=== PATIENT | female | born 1985 | race Caucasian/White ===

== ENCOUNTER 2017-04-30 22:26 | Emergency (ER) | payer MEDICAID ==
[2017-04-30 22:36] VITALS: BP 125/66; PULSE 78; RESP 16; TEMP 97.7; O2SAT 99
[2017-04-30] MEDS ORDERED: Sodium Chloride 0.9% 1,000 ML IV STA (23:08)
[2017-04-30 23:33] LABS: BASO % 0.3 % (0.0-2.0); EOS # 0.3 K/uL (0.0-0.7); EOS % 3.6 % (0.0-4.0); HEMOGLOBIN 12.2 g/dL (12.0-16.0); LYMPH # 3.4 K/uL (1.0-4.3); LYMPH % 40.2 % (20.0-40.0); MEAN CELL VOLUME 78.7 fl (81.0-99.0); MEAN CORPUSCULAR HEMOGLOBIN 25.7 pg (27.0-31.0); MEAN CORPUSCULAR HGB CONC 32.7 g/dL (33.0-37.0); MEAN PLATELET VOLUME 8.3 fl (7.2-11.7); MONO # 0.5 K/uL (0.0-0.8); MONO % 6.3 % (0.0-10.0); NEUT # 4.3 K/uL (1.8-7.0); NEUT % 49.6 % (50.0-75.0); RBC 4.76 Mil/uL (3.80-5.20); RED CELL DISTRIBUTION WIDTH 13.1 % (11.5-14.5); WHITE BLOOD COUNT 8.6 K/uL (4.8-10.8)
[2017-04-30 23:35] LABS: ALB/GLOB RATIO 1.3 (1.0-2.1); ALBUMIN 4.3 g/dL (3.5-5.0); ALT/SGPT 33 U/L (9-52); AST/SGOT 19 U/L (14-36); BLOOD UREA NITROGEN 13 mg/dl (7-17); CALCIUM 9.3 mg/dL (8.4-10.2); GFR AFRICAN-AMERICAN > 60; GFR NON-AFRICAN AMERICAN > 60; MAGNESIUM 2.3 MG/DL (1.6-2.3)
--- NOTE | 2017-04-30 23:59 | CT ---
EXAM: CT Head Without Intravenous Contrast CLINICAL HISTORY: 31 years old, female; Pain; Headache; Additional info: Dizziness headache TECHNIQUE: Axial computed tomography images of the head/brain without intravenous contrast. This CT exam was performed using one or more of the following dose reduction techniques: automated exposure control, adjustment of the mA and/or kV according to patient size, and/or use of iterative reconstruction technique. Coronal and sagittal reformatted images were created and reviewed. COMPARISON: No relevant prior studies available. FINDINGS: Brain: No intracranial hemorrhage. 0.7 x 0.4 x 1.0 cm lipoma along quadrigeminal plate. No definite edema. Ventricles: No hydrocephalus. Bones/joints: No acute fracture. Sinuses: Moderate mucosal thickening of ethmoid sinuses. Mild mucosal thickening of sphenoid sinuses. Mastoid air cells: No mastoid effusion. Orbits: Unremarkable as visualized. IMPRESSION: 1. No acute intracranial abnormality. 2. Sinus disease. 3. Incidental/non-acute findings are described above.
--- NOTE | 2017-05-01 00:12 | ED PDOC ---
HPI: Headache Time Seen by Provider: 04/30/17 22:38 Chief Complaint (Nursing): Headache Chief Complaint (Provider): Headache History Per: Patient History/Exam Limitations: no limitations Onset/Duration Of Symptoms: Days (x3) Current Symptoms Are (Timing): Still Present Additional Complaint(s): Nataliia Moreno is a 31 year old female that presents to the ED with a chief complaint of a frontal, pressure-like headache and vertiginous dizziness that she has been experiencing for the past three days. Patient reports that her symptoms were initially intermittent but have since become persistent. She states that she has experienced similar headaches in the past, but that they would never last this long. She reports associated malaise, fatigue, and mild shortness of breath, but denies any nausea, vomiting, chest pain, focal weakness , or blurry vision. Past Medical History Reviewed: Historical Data, Nursing Documentation, Vital Signs Vital Signs: Last Vital Signs Temp 97.7 F 04/30/17 22:32 Pulse 78 04/30/17 22:32 Resp 16 04/30/17 22:32 BP 125/66 04/30/17 22:32 Pulse Ox 99 04/30/17 22:32 - Surgical History Surgical History: No Surg Hx - Family History Family History: States: Diabetes - Social History Current smoker - smoking cessation education provided: No Alcohol: None Drugs: Denies - Home Medications Home Medications: Ambulatory Orders Medication Instructions Recorded Acetaminophen/Butalbital/Caf 1 tab PO TID PRN #20 tab 05/01/17 [Fioricet] Cetirizine HCl [Zyrtec] 10 mg PO DAILY #30 tab.rapdis 05/01/17 - Allergies Allergies/Adverse Reactions: Allergies Allergy/AdvReac Type Severity Reaction Status Date / Time No Known Allergies Allergy Verified 04/30/17 22:32 Review of Systems Constitutional: Positive for: Malaise, Other (Fatigue) Eyes: Negative for: Other (denies focal weakness or blurred vision) Cardiovascular: Negative for: Chest Pain Respiratory: Positive for: Shortness of Breath (mild) Gastrointestinal: Negative for: Nausea, Vomiting Neurological: Positive for: Headache (Frontal, pressure-like), Dizziness ( vertiginous) Physical Exam - Reviewed Nursing Documentation Reviewed: Yes Vital Signs Reviewed: Yes - Physical Exam Appears: Positive for: Non-toxic, No Acute Distress Head Exam: Positive for: ATRAUMATIC, NORMOCEPHALIC Skin: Positive for: Normal Color, Warm, Dry Eye Exam: Positive for: Normal appearance, EOMI, PERRL. Negative for: Nystagmus ENT: Positive for: Normal ENT Inspection, Pharynx Is (clear), Other (Moint mucous membranes) Neck: Positive for: Normal, Painless ROM, Supple Cardiovascular/Chest: Positive for: Regular Rate, Rhythm, Chest Non Tender. Negative for: Edema, Murmur Respiratory: Positive for: Normal Breath Sounds. Negative for: Wheezing, Respiratory Distress Gastrointestinal/Abdominal: Positive for: Normal Exam, Soft. Negative for: Tenderness, Distended Back: Positive for: Normal Inspection. Negative for: L CVA Tenderness, R CVA Tenderness Extremity: Positive for: Normal ROM. 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 Negative for : Motor/Sensory Deficits - Laboratory Results Result Diagrams: 04/30/17 23:14 04/30/17 23:14 - ECG O2 Sat by Pulse Oximetry: 99 (rA) Pulse Ox Interpretation: Normal Medical Decision Making Medical Decision Making: Impression: Headache Plan: * EKG * CT Head w/o contrast * Glucose, Blood, POC * Urine dip * Urine * Tylenol 3 975 mg PO * Dextrose 5% 1000 mL at 100 mLs/hr * NaCl 1000 mL at 1000 mLs/hr * Antivert 25 mg PO * Reevaluation CT Head w/o contrast FINDINGS: Brain: No intracranial hemorrhage. 0.7 x 0.4 x 1.0 cm lipoma along quadrigeminal plate. No definite edema. Ventricles: No hydrocephalus. Bones/joints: No acute fracture. Sinuses: Moderate mucosal thickening of ethmoid sinuses. Mild mucosal thickening of sphenoid sinuses. Mastoid air cells: No mastoid effusion. Orbits: Unremarkable as visualized. IMPRESSION: 1. No acute intracranial abnormality. 2. Sinus disease. 3. Incidental/non-acute findings are described above EKG shows NSR at rate of 72, normal ST segment, normal QRS. Labs show no clinically significant abnormalities. Urine is positive for small ketone, otherwise negative. 12:!5am On reeval pt reports feeling better. DW pt findings and plan of care. Scribe Attestation: Documented by Tamia Mann, acting as a scribe for Natasha Ellis MD. Provider Scribe Attestation: All medical record entries made by the Scribe were at my direction and personally dictated by me. I have reviewed the chart and agree that the record accurately reflects my personal performance of the history, physical exam, medical decision making, and the department course for this patient. I have also personally directed, reviewed, and agree with the discharge instructions and disposition. Disposition - Clinical Impression Clinical Impression: Headache, Sinusitis - Disposition Referrals: [facility] [Outside] [facility] [Outside] Disposition: Routine/Home Disposition Time: 00:15 Condition: IMPROVED Prescriptions: Acetaminophen/Butalbital/Caf [Fioricet] 1 tab PO TID PRN #20 tab PRN Reason: Headache Cetirizine HCl [Zyrtec] 10 mg PO DAILY #30 tab.deja Instructions: Sinusitis (ED), Acute Headache (ED) Forms: [facility] ED School/Work Excuse
--- NOTE | 2017-05-01 08:00 | CARD ---
APPROVED REPORT EKG Measurement Heart [id number] <Conclusion> Normal sinus rhythm Normal ECG
== END 2017-05-01 00:40 | disposition home or self-care (01) ==
LOC: H.ER 22:26
DX: J32.9 Chronic sinusitis, unspecified (principal); R51 Headache

== ENCOUNTER 2017-11-02 23:15 | Emergency (ER) | payer MEDICAID ==
[2017-11-03 00:11] VITALS: BP 138/82; PULSE 87; RESP 16; TEMP 97.5; O2SAT 99
[2017-11-03] MEDS ORDERED: Sodium Chloride 0.9% 1,000 ML IV STA (02:03)
[2017-11-03 02:07] LABS: HEMOGLOBIN 12.8 g/dL (12.0-16.0); MEAN CELL VOLUME 78.4 fl (81.0-99.0); MEAN CORPUSCULAR HEMOGLOBIN 25.2 pg (27.0-31.0); MEAN CORPUSCULAR HGB CONC 32.2 g/dL (33.0-37.0); RBC 5.09 Mil/uL (3.80-5.20)
[2017-11-03 02:16] LABS: BLOOD UREA NITROGEN 13 mg/dl (7-17); CALCIUM 9.5 mg/dL (8.4-10.2); GFR AFRICAN-AMERICAN > 60; GFR NON-AFRICAN AMERICAN > 60
--- NOTE | 2017-11-03 02:28 | ED PDOC ---
Syncope/Near Syncope/Dizziness Time Seen by Provider: 11/03/17 01:33 Chief Complaint (Nursing): Dizziness/Lightheaded Chief Complaint (Provider): Dizziness/Lightheaded History Per: Patient History/Exam Limitations: no limitations Additional Complaint(s): 32 y/o female with past medical history of dizziness presents to the ED complaining of dizziness. Patient reports that this happens often when she is sleeping and gets up suddenly and has an episode of dizziness and pass out. Normally she circumvents by laying back down but today didnt lay down quickly and hit her chin on table and injured right shoulder. Denies head injury or any further medical complaints. Past Medical History Reviewed: Historical Data, Nursing Documentation, Vital Signs Vital Signs: Last Vital Signs Temp 97.5 F L 11/03/17 00:07 Pulse 87 11/03/17 00:07 Resp 16 11/03/17 00:07 BP 138/82 11/03/17 00:07 Pulse Ox 99 11/03/17 00:07 - Medical History Other PMH: Dizziness - Family History Family History: States: Unknown Family Hx, Diabetes - Immunization History Hx Tetanus Toxoid Vaccination: No Hx Influenza Vaccination: No Hx Pneumococcal Vaccination: No - Home Medications Home Medications: Ambulatory Orders Medication Instructions Recorded Nitrofurantoin Macrocrystals 1 cap PO BID #14 cap 05/24/15 [Macrobid] Phenazopyridine Hydrochlorid2 1 tab PO TID #15 tab 05/24/15 [Pyridium] Acetaminophen/Butalbital/Caf 1 tab PO TID PRN #20 tab 05/01/17 [Fioricet] Cetirizine HCl [Zyrtec] 10 mg PO DAILY #30 tab.rapdis 05/01/17 - Allergies Allergies/Adverse Reactions: Allergies Allergy/AdvReac Type Severity Reaction Status Date / Time No Known Allergies Allergy Verified 11/03/17 00:07 Review of Systems ROS Statement: Except As Marked, All Systems Reviewed And Found Negative (As per HPI, otherwise negative) Musculoskeletal: Positive for: Shoulder Pain (injured right shoulder) Skin: Positive for: Other (Abrasion on chin) Neurological: Positive for: Dizziness Physical Exam - Reviewed Nursing Documentation Reviewed: Yes Vital Signs Reviewed: Yes - Physical Exam Appears: Positive for: Well, Non-toxic, No Acute Distress Head Exam: Positive for: ATRAUMATIC, NORMAL INSPECTION, NORMOCEPHALIC Skin: Positive for: Normal Color, Warm, Dry (0.5 cm superficial laceration botton of the chin (clean, no bleeding)) Eye Exam: Positive for: EOMI, Normal appearance, PERRL ENT: Positive for: Normal ENT Inspection Neck: Positive for: Normal, Painless ROM, Supple Cardiovascular/Chest: Positive for: Regular Rate, Rhythm. Negative for: Murmur Respiratory: Positive for: Normal Breath Sounds. Negative for: Accessory Muscle Use, Respiratory Distress Gastrointestinal/Abdominal: Positive for: Normal Exam, Bowel Sounds, Soft Back: Positive for: Normal Inspection Extremity: Positive for: Normal ROM (Right shoulder), Other (Pain on palpation to right shoulder anterior to deltoid) Neurologic/Psych: Positive for: Alert, Oriented (x3) - Laboratory Results Result Diagrams: 11/03/17 02:05 11/03/17 02:05 - ECG O2 Sat by Pulse Oximetry: 99 (RA) Pulse Ox Interpretation: Normal Medical Decision Making Medical Decision Making: Time: 02:05 Initial Impression: vertigo vs vasovagal syncope and laceration Plan: BMP CBC Sodium chloride 1L IV Reevaluation Time: 03:17 Upon provider reevaluation patient is feeling better, is medically stable, and requires no further treatment in the ED at this time. Patient will be discharged home. Counseling was provided and all questions were answered regarding diagnosis and need for follow up with Dr. Rosy Contreras. There is agreement to discharge plan. Return if symptoms persist or worsen. Clinical Impression: laceration, Dizziness Scribe Attestation: Documented by Ed Gastelum acting as a scribe for Dg Schuler MD. Scribe Attestation: All medical record entries made by the Scribe were at my direction and personally dictated by me. I have reviewed the chart and agree that the record accurately reflects my personal performance of the history, physical exam, medical decision making, and the department course for this patient. I have also personally directed, reviewed, and agree with the discharge instructions and disposition. Disposition - Clinical Impression Clinical Impression: Dizziness, Laceration - Disposition Referrals: Rosy Contreras MD [Medical Doctor] - Disposition Time: 03:30 Condition: IMPROVED Additional Instructions: Please followup with the neurologist for further workup. Instructions: Laceration (DC), Dizziness (ED), Skin Adhesive Care (ED) Forms: [employer] (Surinamese)
== END 2017-11-03 03:27 | disposition home or self-care (01) ==
LOC: H.ER 23:15
DX: R42 Dizziness and giddiness (principal); M25.511 Pain in right shoulder; S00.81XA Abrasion of other part of head, initial encounter; W22.8XXA Striking against or struck by other objects, initial encounter; Y92.89 Other specified places as the place of occurrence of the external cause
CPT/HCPCS: 80048; 85027; 96360; 99282; J7040

== ENCOUNTER 2017-12-08 15:12 | Emergency (ER) | payer MEDICAID ==
[2017-12-08 15:44] VITALS: BP 147/85; PULSE 72; RESP 16; TEMP 98.7; O2SAT 97
[2017-12-08] MEDS ORDERED: Sodium Chloride 0.9% 1,000 ML IV STA (15:56)
--- NOTE | 2017-12-08 16:23 | ED PDOC ---
HPI: Abdomen Time Seen by Provider: 12/08/17 15:46 Chief Complaint (Nursing): Abdominal Pain Chief Complaint (Provider): Abdominal Pain History Per: Patient History/Exam Limitations: no limitations Onset/Duration Of Symptoms: Days (x1) Outside of [place] travel?: No Current Symptoms Are (Timing): Still Present Location Of Pain/Discomfort: LLQ Associated Symptoms: Urinary Symptoms ((+) frequency) Additional Complaint(s): 32 year old female presents to ED with complaints of abdominal pain x1 day and has no past medical history. Localizes pain to the LLQ and notes that pain radiates to the left flank region. (+) frequency, (-) fever, nausea, vomiting, diarrhea, dysuria, or hematuria. Confirms taking Tylenol provides temporary relief. PCP: None Past Medical History Reviewed: Historical Data, Nursing Documentation, Vital Signs Vital Signs: Last Vital Signs Temp 98.7 F 12/08/17 15:42 Pulse 72 12/08/17 15:42 Resp 16 12/08/17 15:42 BP 147/85 12/08/17 15:42 Pulse Ox 97 12/08/17 16:25 - Medical History PMH: No Chronic Diseases - Surgical History Surgical History: No Surg Hx - Family History Family History: States: Diabetes - Immunization History Hx Tetanus Toxoid Vaccination: No Hx Influenza Vaccination: No Hx Pneumococcal Vaccination: No - Home Medications Home Medications: Ambulatory Orders Medication Instructions Recorded Nitrofurantoin Macrocrystals 1 cap PO BID #14 cap 05/24/15 [Macrobid] Phenazopyridine Hydrochlorid2 1 tab PO TID #15 tab 05/24/15 [Pyridium] Acetaminophen/Butalbital/Caf 1 tab PO TID PRN #20 tab 05/01/17 [Fioricet] Cetirizine HCl [Zyrtec] 10 mg PO DAILY #30 tab.rapdis 05/01/17 Naproxen [Naprosyn] 500 mg PO BID PRN #15 tablet 12/08/17 - Allergies Allergies/Adverse Reactions: Allergies Allergy/AdvReac Type Severity Reaction Status Date / Time No Known Allergies Allergy Verified 11/03/17 00:07 Review of Systems ROS Statement: Except As Marked, All Systems Reviewed And Found Negative Constitutional: Negative for: Fever Gastrointestinal: Positive for: Abdominal Pain (LLQ pain). Negative for: Nausea , Vomiting, Diarrhea Genitourinary Female: Positive for: Frequency. Negative for: Dysuria, Hematuria Musculoskeletal: Positive for: Back Pain (abdominal pain radiates to left flank) Physical Exam - Reviewed Nursing Documentation Reviewed: Yes Vital Signs Reviewed: Yes - Physical Exam Appears: Positive for: Non-toxic, No Acute Distress Skin: Positive for: Normal Color, Warm, Dry Cardiovascular/Chest: Positive for: Regular Rate, Rhythm. Negative for: Murmur Respiratory: Positive for: Normal Breath Sounds. Negative for: Respiratory Distress Gastrointestinal/Abdominal: Positive for: Soft, Tenderness (LLQ tenderness). Negative for: Mass, Guarding, Rebound Back: Positive for: L CVA Tenderness. Negative for: Normal Inspection, R CVA Tenderness Neurologic/Psych: Positive for: Alert, Oriented. Negative for: Motor/Sensory Deficits - Laboratory Results Result Diagrams: 12/08/17 16:54 12/08/17 16:54 - ECG O2 Sat by Pulse Oximetry: 97 (RA) Pulse Ox Interpretation: Normal Medical Decision Making Medical Decision Makin Initial impression: UTI, pyelonephritis, kidney stones Initial plan: * CT A/P * Labs * UPreg * UDip * PTT/PT * Morphine 2mg IV * NS IV * Re-eval Accession No. : [id number] Patient Name / ID : HIREN WALLS N / [id number] Exam Date : 12/08/2017 16:34:23 ( Approved ) Study Comment : Sex / Age : F / 32Y Creator : Brandon Street MD Dictator : Brandon Street MD Senior Talent Management Consultant : Wireless Engineer : Brandon Street MD Approver2 : Report Date : 12/08/2017 17:25:32 My Comment : PROCEDURE: CT Abdomen and Pelvis without intravenous contrast HISTORY: L flank/LLQ pain COMPARISON: None. TECHNIQUE: CT scan of the abdomen and pelvis was performed without contrast. Multiple axial images were obtained as well as coronal and sagittal reconstruction images. Technique. Contrast Dose: No contrast administered Radiation dose: Total exam DLP = Total exam DLP = 395 mGy-cm. This CT exam was performed using one or more of the following dose reduction techniques: Automated exposure control, adjustment of the mA and/or kV according to patient size, and/or use of iterative reconstruction technique. FINDINGS: LOWER THORAX: Visualized lung bases are unremarkable for infiltrate, nodule, or effusion. Visualized distal esophagus, stomach, and duodenum are within normal limits. LIVER: No evidence of focal liver mass or intrahepatic ductal dilatation. GALLBLADDER AND BILE DUCTS: Unremarkable. PANCREAS: Unremarkable. No gross lesion or ductal dilatation. SPLEEN: Unremarkable. ADRENALS: Unremarkable. No mass. KIDNEYS AND URETERS: Kidney show no evidence of hydronephrosis or perinephric change. No ureteral calculus or ureteral dilatation is identified. Bladder is normal in outline. VASCULATURE: Unremarkable. No aortic aneurysm. BOWEL: Unremarkable. No obstruction. No gross mural thickening. No pericolonic inflammatory change noted. Moderate residual fecal material throughout the bowel. APPENDIX: Unremarkable. Normal appendix. PERITONEUM: Unremarkable. No free fluid. No free air. LYMPH NODES: Unremarkable. No enlarged lymph nodes. BLADDER: Unremarkable. REPRODUCTIVE: Uterus is retroverted in position. No adnexal masses are seen. No fluid is seen in the pelvis. BONES: No acute fracture. OTHER FINDINGS: None. IMPRESSION: No evidence of obstructive uropathy, perinephric change, or hydronephrosis. No renal calculi clearly seen. No appreciable acute inflammatory process elsewhere in the abdomen or pelvis. Accession No. : [id number] Patient Name / ID : HIREN WALLS / [id number] Exam Date : 12/08/2017 19:01:18 ( Approved ) Study Comment : Sex / Age : F / 32Y Creator : Mehreen Sultana MD Dictator : Senior Talent Management Consultant : Wireless Engineer : Mehreen Sultana MD Approver2 : Report Date : 12/08/2017 20:58:00 My Comment : [facility] Division of Radiology [address] [place] [id number] Tel. no. Patient Name: TITI MARADIAGA Pt. Address: [address] [place] [address] Rec #: [id number] [place] [address]: Sofia AVERY,Annie Covarrubias Pt Order Location: [facility] : 1985 Female Age: 32 Order #: [id number] Reason for exam: LLQ pain Ultrasound PELVIS/TRANSVAG US Exam Date: 12/08/17 This imaging exam was performed at [facility] (Former[facility] EXAM: US Pelvis Complete, Transabdominal US Pelvis, Transvaginal EXAM DATE/TIME: 12/08/2017 5:34 PM CLINICAL HISTORY: 32 years old, female; Pain; Other: Llq; Additional info: Llq pain TECHNIQUE: Real-time transabdominal and transvaginal pelvic ultrasound (complete) with image documentation. Transvaginal imaging was used for better evaluation of the endometrium and adnexa. COMPARISON: No relevant prior studies available. FINDINGS: Uterus: Within normal limits in appearance. Measures 6 x 4 x 4.9 cm. Endometrial stripe does not appear abnormally thickened, measuring 2.4 mm. No fibroids seen. Right ovary: Within normal limits in appearance, containing multiple follicles. Measures 2.4 x 2.8 x 1.5 cm. Flow seen in the right ovary on color and Doppler imaging, with no evidence of torsion. Left ovary: Within normal limits in appearance, containing multiple follicles. Measures 3.1 x 1.5 x 2 cm. Flow seen in the left ovary on color and Doppler imaging, with no evidence of torsion. Cul-de-sac: No free fluid. IMPRESSION: Unremarkable exam. No evidence of ovarian torsion, free fluid, or other acute abnormality. Dictated By: Mehreen Sultana MD Dictated Date/Time: 12/08/172057 Signed By: Mehreen Sultana MD Date Signed: 2057 Transcribed By: SINDY Transcribe Date/Time : 12/08/172057 [facility]02/МАРИЯ Scribe Attestation: Documented by Guera Tomlinson acting as a scribe Annie Black MD. Scribelan Attestation: All medical record entries made by the Scribe were at my direction and personally dictated by me. I have reviewed the chart and agree that the record accurately reflects my personal performance of the history, physical exam, medical decision making, and the department course for this patient. I have also personally directed, reviewed, and agree with the discharge instructions and disposition. Disposition - Clinical Impression Clinical Impression: Abdominal pain in female - Disposition Referrals: [facility] [Outside] Disposition: Routine/Home Disposition Time: 21:27 Condition: STABLE Prescriptions: Naproxen [Naprosyn] 500 mg PO BID PRN #15 tablet PRN Reason: Pain, Moderate (4-7) Instructions: Acute Abdomen (Belly Pain) Forms: [facility] (Tuvaluan)
[2017-12-08 17:08] LABS: BASO % 0.4 % (0.0-2.0); EOS # 0.3 K/uL (0.0-0.7); EOS % 3.4 % (0.0-4.0); HEMOGLOBIN 13.2 g/dL (12.0-16.0); LYMPH # 2.8 K/uL (1.0-4.3); MEAN CELL VOLUME 78.6 fl (81.0-99.0); MEAN CORPUSCULAR HEMOGLOBIN 25.5 pg (27.0-31.0); MEAN CORPUSCULAR HGB CONC 32.4 g/dL (33.0-37.0); MEAN PLATELET VOLUME 8.5 fl (7.2-11.7); MONO # 0.6 K/uL (0.0-0.8); MONO % 7.4 % (0.0-10.0); NEUT # 4.2 K/uL (1.8-7.0); NEUT % 53.8 % (50.0-75.0); NRBC % 0.1 % (0.0-0.0); RBC 5.19 Mil/uL (3.80-5.20); RED CELL DISTRIBUTION WIDTH 13.6 % (11.5-14.5); WHITE BLOOD COUNT 7.9 K/uL (4.8-10.8)
--- NOTE | 2017-12-08 17:26 | CT ---
PROCEDURE: CT Abdomen and Pelvis without intravenous contrast HISTORY: L flank/LLQ pain COMPARISON: None. TECHNIQUE: CT scan of the abdomen and pelvis was performed without contrast. Multiple axial images were obtained as well as coronal and sagittal reconstruction images. Technique. Contrast Dose: No contrast administered Radiation dose: Total exam DLP = Total exam DLP = 395 mGy-cm. This CT exam was performed using one or more of the following dose reduction techniques: Automated exposure control, adjustment of the mA and/or kV according to patient size, and/or use of iterative reconstruction technique. FINDINGS: LOWER THORAX: Visualized lung bases are unremarkable for infiltrate, nodule, or effusion. Visualized distal esophagus, stomach, and duodenum are within normal limits. LIVER: No evidence of focal liver mass or intrahepatic ductal dilatation. GALLBLADDER AND BILE DUCTS: Unremarkable. PANCREAS: Unremarkable. No gross lesion or ductal dilatation. SPLEEN: Unremarkable. ADRENALS: Unremarkable. No mass. KIDNEYS AND URETERS: Kidney show no evidence of hydronephrosis or perinephric change. No ureteral calculus or ureteral dilatation is identified. Bladder is normal in outline. VASCULATURE: Unremarkable. No aortic aneurysm. BOWEL: Unremarkable. No obstruction. No gross mural thickening. No pericolonic inflammatory change noted. Moderate residual fecal material throughout the bowel. APPENDIX: Unremarkable. Normal appendix. PERITONEUM: Unremarkable. No free fluid. No free air. LYMPH NODES: Unremarkable. No enlarged lymph nodes. BLADDER: Unremarkable. REPRODUCTIVE: Uterus is retroverted in position. No adnexal masses are seen. No fluid is seen in the pelvis. BONES: No acute fracture. OTHER FINDINGS: None. IMPRESSION: No evidence of obstructive uropathy, perinephric change, or hydronephrosis. No renal calculi clearly seen. No appreciable acute inflammatory process elsewhere in the abdomen or pelvis.
[2017-12-08 17:29] LABS: ALB/GLOB RATIO 1.1 (1.0-2.1); ALBUMIN 4.5 g/dL (3.5-5.0); ALT/SGPT 32 U/L (9-52); AST/SGOT 33 U/L (14-36); BLOOD UREA NITROGEN 10 mg/dl (7-17); CALCIUM 9.4 mg/dL (8.4-10.2); GFR AFRICAN-AMERICAN > 60; GFR NON-AFRICAN AMERICAN > 60
[2017-12-08 18:24] LABS: PARTIAL THROMBOPLASTIN TIME 30.6 Seconds (25.6-37.1); PROTHROMBIN TIME 11.1 Seconds (9.8-13.1)
--- NOTE | 2017-12-08 20:58 | US ---
EXAM: US Pelvis Complete, Transabdominal US Pelvis, Transvaginal EXAM DATE/TIME: 12/08/2017 5:34 PM CLINICAL HISTORY: 32 years old, female; Pain; Other: Llq; Additional info: Llq pain TECHNIQUE: Real-time transabdominal and transvaginal pelvic ultrasound (complete) with image documentation. Transvaginal imaging was used for better evaluation of the endometrium and adnexa. COMPARISON: No relevant prior studies available. FINDINGS: Uterus: Within normal limits in appearance. Measures 6 x 4 x 4.9 cm. Endometrial stripe does not appear abnormally thickened, measuring 2.4 mm. No fibroids seen. Right ovary: Within normal limits in appearance, containing multiple follicles. Measures 2.4 x 2.8 x 1.5 cm. Flow seen in the right ovary on color and Doppler imaging, with no evidence of torsion. Left ovary: Within normal limits in appearance, containing multiple follicles. Measures 3.1 x 1.5 x 2 cm. Flow seen in the left ovary on color and Doppler imaging, with no evidence of torsion. Cul-de-sac: No free fluid. IMPRESSION: Unremarkable exam. No evidence of ovarian torsion, free fluid, or other acute abnormality.
== END 2017-12-08 21:58 | disposition home or self-care (01) ==
LOC: H.ER 15:12
DX: R10.32 Left lower quadrant pain (principal)
CPT/HCPCS: 74176; 76830; 76856; 80053; 81025; 85025; 85610; 85730; 96360; 99284; J2270; J7040

== ENCOUNTER 2018-01-23 12:07 | Emergency (ER) | payer MEDICAID ==
[2018-01-23 12:32] VITALS: BP 119/74; PULSE 74; RESP 16; TEMP 98; O2SAT 98
[2018-01-23] MEDS ORDERED: Naproxen 500 MG TAB PO ONE ×2 (12:46→13:09)
[2018-01-23] MEDS ORDERED: Tdap Vaccine 0.5 ml Vial (10-64 yrs) IM ONE ×2 (12:46→13:09)
[2018-01-23] MEDS ORDERED: Bacitracin 500 Units/gm Oint Foilpak UD TOP STA (13:03)
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
== END 2018-01-23 13:56 | disposition home or self-care (01) ==
LOC: H.ER 12:07
DX: T20.00XA Burn of unspecified degree of head, face, and neck, unspecified site, initial encounter (principal)

== ENCOUNTER 2018-02-21 09:29 | Emergency (ER) | payer MEDICAID ==
[2018-02-21 09:35] VITALS: TEMP 98
--- NOTE | 2018-02-21 10:55 | ED PDOC ---
HPI: Abdomen Chief Complaint (Nursing): Abdominal Pain Chief Complaint (Provider): low back and pelvic pain History Per: Patient History/Exam Limitations: no limitations Onset/Duration Of Symptoms: Days (7) Outside of [place] travel?: No Current Symptoms Are (Timing): Still Present Severity: Moderate Pain Scale Rating Of: 4 Location Of Pain/Discomfort: LLQ, Suprapubic Quality Of Discomfort: "Pain" Associated Symptoms: Back Pain (low back), Other (bilateral breast tenderness). denies: Fever, Chills, Nausea, Vomiting, Diarrhea, Loss Of Appetite Exacerbating Factors: Movement, Walking, Other (bending her knees) Alleviating Factors: Rest (keeping legs straight) Last Bowel Movement: Yesterday (soft) Additional Complaint(s): 32 yr old presents to ED with complaint of suprapubic and bilateral lower quadrant abdominal pain x 1 week, 4/10, crampy, alleviated by keeping legs straight at rest, exacerbated by movement and bending knees. Patient reports she went for a run this morning and the abdominal pain persisted so she came to the ED. Denies PMHx. Associated symptoms are urinary frequency and bilateral breast tenderness. Denies nausea, vomiting, fevers, chills, dysuria, hematuria or vaginal discharge. LMP 01/26/18. Last bowel movement was yesterday-soft. Reports she stopped her oral contraceptives this month because she would like to conceive. At home test was negative today. She is tolerating PO fluids and solids. PMD: Dr. Damico at [facility] PMHx: none SurgHx: none Past Medical History Vital Signs: Last Vital Signs Temp 98.0 F 02/21/18 09:34 Pulse 74 02/21/18 09:34 Resp 19 02/21/18 09:34 BP 128/79 02/21/18 09:34 Pulse Ox 98 02/21/18 13:22 - Medical History PMH: No Chronic Diseases - Surgical History Surgical History: No Surg Hx - Family History Family History: States: Unknown Family Hx, Diabetes - Living Arrangements Living Arrangements: With Family - Social History Current smoker - smoking cessation education provided: No Ex-Smoker (has not smoked in the last 12 months): No - Immunization History Hx Tetanus Toxoid Vaccination: No Hx Influenza Vaccination: No Hx Pneumococcal Vaccination: No - Home Medications Home Medications: Ambulatory Orders Medication Instructions Recorded Nitrofurantoin Macrocrystals 1 cap PO BID #14 cap 05/24/15 [Macrobid] Phenazopyridine Hydrochlorid2 1 tab PO TID #15 tab 05/24/15 [Pyridium] Acetaminophen/Butalbital/Caf 1 tab PO TID PRN #20 tab 05/01/17 [Fioricet] Cetirizine HCl [Zyrtec] 10 mg PO DAILY #30 tab.rapdis 05/01/17 Naproxen [Naprosyn] 500 mg PO BID PRN #15 tablet 12/08/17 - Allergies Allergies/Adverse Reactions: Allergies Allergy/AdvReac Type Severity Reaction Status Date / Time No Known Allergies Allergy Verified 02/21/18 09:42 Review of Systems Constitutional: Negative for: Fever, Chills Eyes: Negative for: Vision Change ENT: Negative for: Nose Discharge, Throat Pain Cardiovascular: Negative for: Chest Pain, Palpitations, Light Headedness Respiratory: Negative for: Cough, Shortness of Breath Gastrointestinal: Positive for: Abdominal Pain. Negative for: Nausea, Vomiting , Diarrhea, Constipation Genitourinary Female: Positive for: Frequency. Negative for: Dysuria, Hematuria , Vaginal Discharge, Vaginal Bleeding, Rash Musculoskeletal: Positive for: Back Pain (low back). Negative for: Neck Pain, Shoulder Pain, Arm Pain Neurological: Negative for: Weakness, Numbness, Dizziness Physical Exam - Physical Exam Appears: Positive for: No Acute Distress Head Exam: Positive for: ATRAUMATIC, NORMOCEPHALIC Skin: Positive for: Normal Color, Warm, Dry Eye Exam: Positive for: EOMI, PERRL ENT: Negative for: Pharyngeal Erythema, Tonsillar Exudate Neck: Positive for: Painless ROM, Supple Cardiovascular/Chest: Positive for: Regular Rate, Rhythm. Negative for: Gallop , Murmur Respiratory: Positive for: Normal Breath Sounds. 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 Negative for: Motor/Sensory Deficits - Laboratory Results Result Diagrams: 02/21/18 11:15 02/21/18 11:15 - ECG O2 Sat by Pulse Oximetry: 98 - Progress ED Course And Treament: -CBC w/diff: normal -CMP: normal -Upreg: negative -Udip: negative -Tylenol 650mg PO once -patients pain improved, she tolerated PO fluids and solids Disposition - Clinical Impression Clinical Impression: Abdominal pain - Patient ED Disposition Is Patient to be Admitted: No Counseled Patient/Family Regarding: Diagnosis, Need For Followup - Disposition Disposition: Routine/Home Disposition Time: 13:19 Condition: IMPROVED Additional Instructions: -Follow up with your PMD within 2-3 days -Take Tylenol as prescribed on the bottle as needed for pain -Return to ED if pain persists, worsens or if any concerns Instructions: Acute Abdomen (Belly Pain), Adult (DC) Forms: [employer] (Ugandan)
[2018-02-21 11:23] LABS: BASO % 0.4 % (0.0-2.0); EOS # 0.4 K/uL (0.0-0.7); EOS % 5.8 % (0.0-4.0); HEMOGLOBIN 12.8 g/dL (12.0-16.0); LYMPH # 2.4 K/uL (1.0-4.3); LYMPH % 32.8 % (20.0-40.0); MEAN CELL VOLUME 77.6 fl (81.0-99.0); MEAN CORPUSCULAR HGB CONC 33.5 g/dL (33.0-37.0); MEAN PLATELET VOLUME 8.5 fl (7.2-11.7); MONO # 0.5 K/uL (0.0-0.8); MONO % 7.1 % (0.0-10.0); NEUT % 53.9 % (50.0-75.0); NRBC % 0.1 % (0.0-0.0); RBC 4.95 Mil/uL (3.80-5.20); RED CELL DISTRIBUTION WIDTH 13.8 % (11.5-14.5); WHITE BLOOD COUNT 7.5 K/uL (4.8-10.8)
[2018-02-21 11:36] LABS: BLOOD UREA NITROGEN 19 mg/dl (7-17); CALCIUM 9.2 mg/dL (8.4-10.2); GFR AFRICAN-AMERICAN > 60; GFR NON-AFRICAN AMERICAN > 60
[2018-02-21 14:07] VITALS: BP 138/70; PULSE 77; RESP 16; O2SAT 99
== END 2018-02-21 14:03 | disposition home or self-care (01) ==
LOC: H.ER 09:29
DX: R10.32 Left lower quadrant pain (principal)